=== PATIENT | female | born 1945 | race Caucasian/White ===

== ENCOUNTER → 2020-12-30 02:30 | Outpatient (REF) | payer OTHER, SELFPAY ==
[2020-12-30 08:52] LABS: Color, Urine Yellow (Yellow); Glucose, Dipstick Normal (Normal); Ketone-Dipstick Negative (Negative); Leukocyte Esterase-Dipstick Negative /ul (Negative); Nitrite-Dipstick Negative (Negative); Occult Blood-Urine Negative /ul (Negative); Protein-Dipstick Negative (Negative); Specific Gravity, Urine 1.015 (1.002-1.030); Urine Bilirubin Dipstick Negative (Negative); Urine Clarity Clear (Clear); Urine Urobilinogen Normal (Normal)
== END ==
LOC: OLS.ACW100 02:30
PROVIDERS: Visit Provider Family Medicine
DX: T84.50XD Infection and inflammatory reaction due to unspecified internal joint prosthesis, subsequent encounter (principal); I48.21 Permanent atrial fibrillation; R27.9 Unspecified lack of coordination; Z89.612 Acquired absence of left leg above knee
CPT/HCPCS: 81002; 87086

== ENCOUNTER → 2021-01-19 05:00 | Outpatient (REF) | payer MEDICARE, OTHER, SELFPAY ==
[2021-01-19 10:05] LABS: Thyroid Stim Hormone (TSH) 5.94 uIU/mL (0.358-3.74)
== END ==
LOC: OLS.ACW100 05:00
PROVIDERS: PCP Family Medicine; Visit Provider Family Medicine
DX: I10 Essential (primary) hypertension (principal); T84.50XD Infection and inflammatory reaction due to unspecified internal joint prosthesis, subsequent encounter; I48.21 Permanent atrial fibrillation; R27.9 Unspecified lack of coordination; Z89.612 Acquired absence of left leg above knee
CPT/HCPCS: 36415; 84443

== ENCOUNTER → 2021-10-24 05:00 | Outpatient (REF) | payer OTHER, SELFPAY ==
[2021-10-24 08:16] LABS: Hematocrit 34.6 % (37-47); Hemoglobin 11.2 g/dL (12.0-15.0); Mean Corp Hgb Conc 32.4 g/dL (32-36); Mean Corpuscular Hgb 31.4 pg (27.0-32.0); Mean Corpuscular Volume 96.9 fL (81-99); Mean Platelet Vol. 10.8 fl (6.2-12.0); Platelet Count 163 K/mm3 (150-450); RBC Distribution Width CV 19.2 % (11.6-14.6); RBC Distribution Width SD 54.7 fl (35.1-43.9); Red Blood Count 3.57 M/mm3 (4.2-5.4); White Blood Count 5.1 K/mm3 (4.4-11.0)
[2021-10-24 09:55] LABS: Valproic Acid (Depakene) Level 80 ug/mL (50-100)
[2021-10-24 09:58] LABS: Vitamin D,25 Hydroxy 54.2 ng/mL
[2021-10-24 10:12] LABS: ALB/GLOB Ratio 0.7 RATIO (0.9-2.4); AST(SGOT) 17 U/L (15-37); Alanine Aminotransfer ALT/SGPT 11 U/L (13-56); Albumin, Serum 2.4 g/dL (3.2-5.0); Alkaline Phosphatase 95 U/L (45-117); Anion Gap 9 (5-15); BUN 7 mg/dL (7-18); BUN/Creat Ratio 17.5 RATIO (10-20); Calcium,Total 8.3 mg/dL (8.5-10.1); Chloride 100 mmol/L (98-107); EST Glomerular Filtration Rate 165 mL/min (>60); Est Glom Filt Rate - Afr Amer 200 mL/min (>60); Globulin 3.6 g/dL (2.2-4.2); Glucose 86 mg/dL (74-106); Potassium 2.5 mmol/L (3.5-5.1); Sodium Level 142 mmol/L (136-145); Thyroid Stim Hormone (TSH) 1.88 uIU/mL (0.358-3.74)
== END ==
LOC: OLS.ACW200 05:00
PROVIDERS: PCP Family Medicine; Visit Provider Family Medicine
DX: K57.90 Diverticulosis of intestine, part unspecified, without perforation or abscess without bleeding (principal); C51.9 Malignant neoplasm of vulva, unspecified; T84.50XD Infection and inflammatory reaction due to unspecified internal joint prosthesis, subsequent encounter; E55.9 Vitamin D deficiency, unspecified; Z79.899 Other long term (current) drug therapy
CPT/HCPCS: 36415; 80053; 80164; 82306; 84443; 85027